=== PATIENT | male | born 1945 | race Caucasian/White ===

== ENCOUNTER → 2020-03-07 12:38 | Outpatient (BNVA) | payer MEDICARE, SELFPAY | PROVIDERS: Family Provider Family Medicine; Visit Provider Psychiatry & Neurology Psychiatry | DX: F31.73 Bipolar disorder, in partial remission, most recent episode manic (principal); F15.21 Other stimulant dependence, in remission | CPT/HCPCS: 99204 ==

== ENCOUNTER → 2020-06-15 07:56 | Outpatient (BNVA) | payer MEDICARE, SELFPAY | PROVIDERS: Family Provider Family Medicine; Visit Provider Nurse Practitioner | DX: F31.73 Bipolar disorder, in partial remission, most recent episode manic (principal) | CPT/HCPCS: 99213 ==

== ENCOUNTER 2020-11-06 00:25 | Emergency (ER) | payer MEDICARE, SELFPAY ==
[2020-11-06 00:32] VITALS: BP 172/109; PULSE 101; RESP 18; TEMP 36.6; O2SAT 96; BMI 26.6
--- NOTE | 2020-11-06 00:35 | ED_ITS ---
HPI - Extremity Injury (Lower) General: Chief Complaint: Wound/Laceration Stated Complaint: lac on left foot Time Seen by Provider: 11/06/20 00:35 Source: patient Mode of arrival: ambulatory Limitations: no limitations History of Present Illness: HPI Narrative: 75-year-old male patient comes in with injury to the left medial foot. Patient states he had left his pocket I opened on the floor and kicked it cutting himself to the left foot. Patient is able ambulate without difficulty. Patient appears well. Patient appears no acute distress. MD complaint: foot injury Review of Systems General: Reports: 10 or more systems reviewed and unremarkable except in HPI and below Skin/Breast: Reports: other (3 cm laceration to left foot) [facility] ED PFSH: Medical History (Updated 11/06/20 @ 00:55 by RENETTA Black) Bipolar disorder, in partial remission, most recent episode manic Other stimulant dependence, in remission Social History (Updated 03/07/20 @ 13:20 by Arti Long) Smoking and tobacco status: current some day smoker Quit status (tobacco): has tried quititng Second hand smoke exposure: Yes Smoking risk assessment/counseling performed?: Yes Current gender identity: Male Physical Exam Const: COMMON NORMALS: no acute distress and patient oriented x3 GENERAL APPEARANCE: cooperative HENMT: COMMON NORMALS: normocephalic and Normal external nose present HEAD & SCALP: normal to inspection and normocephalic NOSE: Normal external nose present MOUTH: Normal oral and palatal mucosa present Eye: GENERAL EYE: appearance normal, both eyes and all related structures Neck/C-Spine: COMMON NORMALS: full ROM Lymph: LYMPHATIC: no lymphadenopathy noted Chest: COMMONS NORMALS: normal inspection of the chest Resp: COMMON NORMALS: normal respiratory effort EFFORT & INSPECTION: Yes able to speak in complete sentences Cardio: COMMON NORMALS: regular rate and regular rhythm RATE: regular rate RHYTHM: regular rhythm GI: COMMON NORMALS: non-tender Back/Pelvis: COMMON NORMALS: thoracic and lumbar spine normal to inspection Extremity: COMMON NORMALS: normal to inspection Neuro: COMMON NORMALS: patient oriented x3 and moves all extremities Psych: COMMON NORMALS: mental status grossly normal and cooperative Skin: NARRATIVE SKIN EXAM: 3cm laceration to medial distal foot at the first joint Course Vital Signs: Vital signs: Vital Signs Temperature 97.8 F 11/06/20 00:32 Pulse Rate 101 H 11/06/20 00:32 Respiratory Rate 18 11/06/20 00:32 Blood Pressure 172/109 11/06/20 00:32 Pulse Oximetry 96 11/06/20 00:32 MDM - Extremity Injury (Lower) MDM Narrative: Medical decision making narrative: Patient comes into injury to the distal left foot. Patient would like the wound cleaned and dressed. Patient has a phobia against needles and does not want to have sutures or his tetanus shot. Exam notes normal range of motion of the great toe. Superficial laceration. Differential diagnosis includes foreign body, laceration, need for tetanus. Patient refused tetanus vaccine. Wound was explored and noted no foreign body. Wound was cleaned and approximated with Steri-Strips and a dry dressing applied. Patient tolerated well. Patient appears no acute distress. Nursing was concerned of patient's behavior and felt that the patient probably has some mild schizophrenia versus his bipolar disorder. Discharge Plan Discharge Patient Disposition: Home Clinical Impression: Laceration of foot, left Qualifiers: Encounter type: initial encounter Qualified Code(s): S91.312A - Laceration without foreign body, left foot, initial encounter Condition: Stable Prescriptions: No Action aripiprazole [Abilify] 5 mg tablet 5 mg PO DAILY Qty: 30 RF: 5 Discharge Orders: Discharge ED (Routine); Ordered 11/06/20 Ordered By: Da Key Referrals: Carlos Angeles MD [Primary Care Provider] - Discharge Diet: Usual diet Discharge Activity: Increase activity as tolerated Patient Instructions: Laceration (ED) Activity Restrictions/Additional Instructions: Keep wound clean and dry. Activity as tolerated. Follow-up with primary care for recheck of wound. Coding Level of Care Code ED Assistant Director Of Plant Operations for Alexandr Fwd Exam Comprehensive
--- NOTE | 2020-11-06 00:59 | PC.NURSE ---
Pt found outside, leaving. Per provider, pt was ask to stay in the room. Pt was outside walking to his truck. Return pt ED lobby to complete paperwork. Pt continues to refused Tdap. Pt signed paperwork.
== END 2020-11-06 00:50 | disposition home or self-care (01) ==
PROVIDERS: Emergency Provider Nurse Practitioner Family; PCP Family Medicine
DX: S91.312A Laceration without foreign body, left foot, initial encounter (principal); F17.210 Nicotine dependence, cigarettes, uncomplicated; W26.0XXA Contact with knife, initial encounter
CPT/HCPCS: 12345; 99281; 99282; A6446

== ENCOUNTER → 2021-05-01 10:15 | Outpatient (BNVA) | payer MEDICARE, SELFPAY | PROVIDERS: PCP Family Medicine; Visit Provider Nurse Practitioner | DX: F31.73 Bipolar disorder, in partial remission, most recent episode manic (principal) | CPT/HCPCS: 99214 ==

== ENCOUNTER → 2021-10-30 09:04 | Outpatient (BNVA) | payer MEDICARE, SELFPAY | PROVIDERS: PCP Family Medicine; Visit Provider Nurse Practitioner | DX: F31.73 Bipolar disorder, in partial remission, most recent episode manic (principal) | CPT/HCPCS: 99214 ==

== ENCOUNTER → 2023-02-25 15:12 | Outpatient (BNVA) | payer MEDICARE, SELFPAY | PROVIDERS: PCP Family Medicine; Visit Provider Nurse Practitioner Family | DX: R06.00 Dyspnea, unspecified (principal) | CPT/HCPCS: 71046 ==

== ENCOUNTER 2023-02-25 16:06 | Inpatient (IN) | payer MEDICARE, SELFPAY ==
[2023-02-25] VITALS (12 sets, daily range): BP systolic 151–176; BP diastolic 80–133; PULSE 72–96; RESP 16–27; TEMP 35.9–36.7; O2SAT 91–98; BMI 32.2
--- NOTE | 2023-02-25 16:17 | ED_ITS ---
HPI - SOB/Dyspnea General: Chief Complaint: Shortness of Breath/Dyspnea Stated Complaint: SOB Time Seen by Provider: 02/25/23 16:16 Source: patient Mode of arrival: EMS History of Present Illness: HPI Narrative: 77-year-old male reports for the last several weeks he has been short of breath. He has not had any chest pain but over the last week it has progressively worsened to the point where he is gotten weak dizzy and at times even disoriented. He uses an albuterol inhaler at home but it does not seem to be helping. He has audible expiratory wheezes he denies any chest pain at this time. He is a former heavy smoker he quit about 8 years ago but smoked for over 50 years prior. Arrives via EMS has moderate relief with albuterol ipratropium bromide nebs in route. No history of coronary artery disease no history of DVT. MD elicited complaint: shortness of breath and cough Pertinent past history: COPD Timing: constant Severity: moderate Exacerbating factors: exertion and coughing Relieving factors: oxygen, rest and bronchodilators Known history of: COPD Associated symptoms: Deny abdominal pain, chest congestion, chest pain, cough, diaphoresis, dizziness, extremity pain, fever(s), hemoptysis, lightheadedness, myalgias, nausea, orthopnea, palpitations, paresthesias, polydipsia, polyuria, rash, sense of impending doom, syncope or vomiting Treatment prior to arrival: oxygen and bronchodilator Related Data: Home oxygen amount: none Review of Systems Const: Denies: fever(s) or diaphoresis ENMT: Denies: throat pain, ear or mastoid pain, nasal discharge or nasal congestion Card: Denies: chest pain, palpitations, lightheadedness, syncope or orthopnea Resp: Denies: hemoptysis or chest congestion GI: Denies: abdominal pain, nausea or vomiting : Denies: flank pain, dysuria, urinary frequency or urinary urgency Musc: Denies: extremity pain Skin/Breast: Denies: rash or pruritus Neuro: Denies: dizziness Endo: Denies: polyuria or polydipsia [facility] ED PFSH: Medical History Bipolar disorder, in partial remission, most recent episode manic COPD (chronic obstructive pulmonary disease) with emphysema COPD exacerbation HTN (hypertension) Other stimulant dependence, in remission Social History Smoking and tobacco status: current some day smoker Quit status (tobacco): has tried quititng Second hand smoke exposure: Yes Smoking risk assessment/counseling performed?: Yes Current gender identity: Male Physical Exam Const: GENERAL APPEARANCE: cooperative and comfortable ORIENTATION /CONSCIOUSNESS: Yes awake, Yes oriented to person, Yes oriented to place and Yes oriented to time HENMT: COMMON NORMALS: normocephalic, atraumatic and hearing grossly normal bilaterally HEAD & SCALP: normocephalic and atraumatic Resp: AUSCULTATION: rhonchi and wheezes Cardio: COMMON NORMALS: regular rate, regular rhythm and No murmurs present (Cardio) RATE: regular rate RHYTHM: regular rhythm GI: COMMON NORMALS: Soft to palpation and No hepatosplenomegaly present AUSCULTATION: Yes normoactive bowel sounds PALPATION: Yes Soft to palpation, No Tenderness to palpation present (GI), No Guarding due to palpation present (GI) and Yes No hepatosplenomegaly present Extremity: COMMON NORMALS: normal to inspection, capillary refill normal, no clubbing, cyanosis or edema, no calf tenderness and no pedal edema Neuro: SENSORIUM/ORIENTATION: Yes oriented to person, Yes oriented to place and Yes oriented to time Skin: COMMON NORMALS: no rashes or lesions noted GENERAL SKIN EXAM: no rashes or lesions noted Course Vital Signs: Vital signs: Vital Signs Temperature 97.7 F 02/26/23 03:44 Pulse Rate 76 02/26/23 05:50 Respiratory Rate 18 02/26/23 03:44 Blood Pressure 162/82 02/26/23 03:44 Pulse Oximetry 94 02/26/23 03:44 Oxygen Delivery Me thod Aerosol Mask 02/26/23 03:44 Oxygen Flow Rate 3 02/26/23 03:44 MDM - SOB/Dyspnea Medical Decision Making Acute exacerbation of COPD with a new oxygen requirement. His sats do improved with supplemental oxygen at 3 to 4 L by nasal cannula. Labs and imaging are reviewed CO2 not elevated. Will admit patient for aggressive pulmonary toilet. . Chest x-ray shows possible bibasilar infiltrates. Started on oral antibiotics. No evidence of pneumothorax or mass. EKG does not show acute changes. Discussed with hospitalist orders written Medical Records I reviewed the patient's medical records. Lab Data I reviewed the patient's lab results. 02/26/23 04:10 02/26/23 04:10 Labs/Radiology: Radiology Impressions Chest X-Ray 02/25/23 16:17 IMPRESSION: 1. Cardiomegaly. 2. Bibasilar atelectasis versus minimal infiltrate. Laboratory Results WBC 10.4 10^3/uL (4.0-10.0) H 02/25/23 16:53 RBC 4.48 10^6/uL (4.1-5.3) 02/25/23 16:53 Hgb 13.3 g/dL (11.7-16.6) 02/25/23 16:53 Hct 41.4 % (42.0-52.0) L 02/25/23 16:53 MCV 92.4 fl (80-94) 02/25/23 16:53 MCH 29.7 pg (28.0-34.0) 02/25/23 16:53 MCHC 32.1 g/dL (30.0-36.0) 02/25/23 16:53 RDW 13.4 % (12.1-15.1) 02/25/23 16:53 Plt Count 271 10^3/cmm (130-400) 02/25/23 16:53 MPV 10.7 fL (7.4-10.4) H 02/25/23 16:53 Neut % (Auto) 66.6 % 02/25/23 16:53 Lymph % (Auto) 19.7 % 02/25/23 16:53 Sharkey % (Auto) 10.8 % 02/25/23 16:53 Eos % (Auto) 1.6 % 02/25/23 16:53 Baso % (Auto) 0.6 % 02/25/23 16:53 Neut # (Auto) 6.95 10^3/uL (1.8-7.7) 02/25/23 16:53 Lymph # (Auto) 2.1 10^3/uL (0.8-4.8) 02/25/23 16:53 Sharkey # (Auto) 1.1 10^3/uL (0.2-0.9) H 02/25/23 16:53 Eos # (Auto) 0.2 10^3/uL (0.0-0.8) 02/25/23 16:53 Baso # (Auto) 0.1 10^3/uL (0.0-0.1) 02/25/23 16:53 Nucleated RBC % (auto) 0 % 02/25/23 16:53 Nucleated RBCs # 0.0 /100WBC 02/25/23 16:53 Sodium 139 mmol/L (136-145) 02/25/23 16:53 Potassium 4.2 mmol/L (3.5-5.1) 02/25/23 16:53 Chloride 102 mmol/L (98-107) 02/25/23 16:53 Carbon Dioxide 26 mmol/L (22-29) 02/25/23 16:53 Anion Gap 15.2 (5-19) 02/25/23 16:53 BUN 22 mg/dL (8-23) 02/25/23 16:53 Creatinine 1.0 mg/dL (0.7-1.2) 02/25/23 16:53 GFR Calculation Not Reportable 02/25/23 16:53 Glucose 136 mg/dL (65-115) H 02/25/23 16:53 Estimat Average Glucose 128 02/25/23 16:53 Hemoglobin A1c 6.1 % (4.0-6.0) H 02/25/23 16:53 Calculated Osmolality 293 mOsm/kg (285-295) 02/25/23 16:53 Calcium 9.3 mg/dL (8.5-10.5) 02/25/23 16:53 Total Bilirubin 0.5 mg/dL (0.15-1.2) 02/25/23 16:53 AST 5 U/L (0-40) 02/25/23 16:53 ALT 15 U/L (0-41) 02/25/23 16:53 Alkaline Phosphatase 90 U/L (40-130) 02/25/23 16:53 NT-Pro-B Natriuret Pep 332 pg/mL (0-450) 02/25/23 16:53 Total Protein 7.2 g/dL (6.6-8.7) 02/25/23 16:53 Albumin 3.8 g/dL (3.5-5.2) 02/25/23 16:53 Globulin 3.4 g/dL (1.3-4.6) 02/25/23 16:53 Discharge Plan Discharge Patient Disposition: Admitted As Inpatient Admit Provider: Sekou Martinez Clinical Impression: Acute exacerbation of chronic obstructive airways disease, Community acquired pneumonia, HTN (hypertension) Condition: Stable Coding Level of Care Code ED Media Production Manager for Alexandr Apodaca
--- NOTE | 2023-02-25 16:17 | XRR_ITS ---
PROCEDURE INFORMATION: Exam: XR Chest Exam date and time: 02/25/2023 4:25 PM Age: 77 years old Clinical indication: Cough and dyspnea; Additional info: Dyspnea/cough TECHNIQUE: Imaging protocol: Radiologic exam of the chest. Views: 1 view. COMPARISON: CR XR chest 2V* [id number] 02/25/2023 3:18 PM FINDINGS: Lungs: Bibasilar atelectasis versus minimal infiltrate. Pleural spaces: Unremarkable. No pleural effusion. No pneumothorax. Heart/Mediastinum: Cardiomegaly. Bones/joints: Unremarkable. XR/XR chest 1V portable [id number] IMPRESSION: 1. Cardiomegaly. 2. Bibasilar atelectasis versus minimal infiltrate.
[2023-02-25] MEDS: ipratropium-albuterol 3 mL Neb INHALATION ×2 (16:47→20:08)
[2023-02-25 17:01] LABS: Basophils # 0.1 10^3/uL (0.0-0.1); Basophils % 0.6 %; Eosinophils # 0.2 10^3/uL (0.0-0.8); Eosinophils % 1.6 %; Hematocrit 41.4 % (42.0-52.0); Hemoglobin 13.3 g/dL (11.7-16.6); Lymphocytes # 2.1 10^3/uL (0.8-4.8); Lymphocytes % 19.7 %; Mean Corpuscular HGB Conc 32.1 g/dL (30.0-36.0); Mean Corpuscular Hemoglobin 29.7 pg (28.0-34.0); Mean Corpuscular Volume 92.4 fl (80-94); Mean Platelet Volume 10.7 fL (7.4-10.4); Monocytes # 1.1 10^3/uL (0.2-0.9); Monocytes % 10.8 %; Neutrophils # 6.95 10^3/uL (1.8-7.7); Neutrophils % 66.6 %; Nucleated Red Blood Cells % 0 %; Platelet Count 271 10^3/cmm (130-400); Red Blood Count 4.48 10^6/uL (4.1-5.3); Red Cell Distribution Width 13.4 % (12.1-15.1); White Blood Count 10.4 10^3/uL (4.0-10.0)
[2023-02-25 17:22] LABS: Alanine Aminotransferase 15 U/L (0-41); Albumin Level 3.8 g/dL (3.5-5.2); Alkaline Phosphatase 90 U/L (40-130); Anion Gap 15.2 (5-19); Blood Urea Nitrogen 22 mg/dL (8-23); Calcium 9.3 mg/dL (8.5-10.5); Carbon Dioxide 26 mmol/L (22-29); Chloride 102 mmol/L (98-107); Globulin 3.4 g/dL (1.3-4.6); Glucose 136 mg/dL (65-115); Osmolality Calculated 293 mOsm/kg (285-295); Potassium 4.2 mmol/L (3.5-5.1); Sodium 139 mmol/L (136-145); Total Bilirubin 0.5 mg/dL (0.15-1.2); Total Protein 7.2 g/dL (6.6-8.7)
[2023-02-25 17:31] LABS: Aspartate Amino Transferase 5 U/L (0-40)
--- NOTE | 2023-02-25 17:55 | PM.HP ---
Providers/Chief Complaint Admitting Physician: Sekou Martinez MD, hospitalist Primary Care Provider: Carlos Angeles MD Chief Complaint: SOB History of Present Illness Rajan Hurley is a 77 year old male with history of bipolar disorder, hypertension, and COPD who presents to the hospital with complaints of wheezing and cough. Symptoms of been going on for at least the last several days. He denies any fever. He reports the cough is not productive. He reports no chest discomfort, or swelling. He denies any sick contacts. He reports he has an inhaler at home that helps but has not been helping too much with this. He reports he is not on oxygen at home. In the emergency department he received some breathing treatments, and a dose of dexamethasone. He reports he may feel a little bit better. Review of Systems General: Reports: 10 or more systems reviewed and unremarkable except in HPI and below Const: Denies: fever(s) or chills Card: Denies: chest pain Resp: Reports: dyspnea, non-productive cough and wheezing GI: Denies: hematochezia or melena Medications/Allergies Home Medications Medication Instructions Recorded Confirmed Last Taken Type aspirin 81 mg chewable tablet 81 mg PO DAILY 05/01/21 02/25/23 02/25/23 History lisinopril 20 mg tablet 20 mg PO DAILY 10/30/21 02/25/23 02/25/23 History rosuvastatin 40 mg tablet (Crestor) 40 mg PO DAILY 10/30/21 02/25/23 02/25/23 History albuterol sulfate 90 mcg/actuation 2 puff inhalation Q6H PRN 11/19/22 02/25/23 Unknown Rx aerosol inhaler shortness of breath or wheezing #8.5 grams budesonide-formoterol HFA 160 2 puff inhalation BID breathing 11/19/22 02/25/23 02/25/23 Rx mcg-4.5 mcg/actuation aerosol #10.2 grams inhaler (Symbicort) aripiprazole 5 mg tablet (Abilify) 5 mg PO DAILY #30 tabs 12/20/22 02/25/23 02/25/23 Rx calcium-magnesium 300 mg-300 mg 1 tab PO BID 02/25/23 02/25/23 02/25/23 History tablet melatonin 5 mg tablet 5 mg PO BEDTIME PRN sleep 02/25/23 02/25/23 Unknown History Allergies Allergy/AdvReac Type Severity Reaction Status Date / Time No Known Allergies Allergy Verified 02/25/23 16:42 PFSH Acute PFSH: Medical History Bipolar disorder, in partial remission, most recent episode manic COPD (chronic obstructive pulmonary disease) with emphysema COPD exacerbation HTN (hypertension) Other stimulant dependence, in remission Social History Smoking and tobacco status: current some day smoker Quit status (tobacco): has tried quititng Second hand smoke exposure: Yes Smoking risk assessment/counseling performed?: Yes Current gender identity: Male Other PFSH information: Supplemental PFSH Information: Reports family history of alcoholism Vitals/I&O/Wt Last Vital Signs Temp 96.7 F L 02/25/23 16:13 Pulse 96 02/25/23 17:46 Resp 24 H 02/25/23 17:46 BP 169/111 02/25/23 17:46 Pulse Ox 92 02/25/23 17:46 O2 Del Method Nasal Cannula 02/25/23 17:46 O2 Flow Rate 3 02/25/23 17:46 Weight last 48 hrs Weight 93.44 kg Physical Exam Narrative: General exam demonstrates audible wheezing from the door, and tachypnea in the 20s HEENT: Atraumatic and normocephalic. Oropharynx clear. Neck is supple no lymphadenopathy thyromegaly Cardiovascular regular rate and rhythm, no murmur Lungs bilateral expiratory wheezes. No crackles Abdomen is soft nontender positive bowel sounds. No obvious organomegaly exam is deferred Extremities trace edema bilaterally Skin no rash Neuro no focal deficits Data 02/25/23 16:53 02/25/23 16:53 Other Labs: Chest x-ray demonstrates bibasilar atelectasis. I reviewed this in detail I have ordered a BNP A&P Assessment and plan (1) COPD exacerbation: Presents with acute COPD exacerbation. He has some evidence of acute respiratory failure manifested by oxygen requirement, 3 to 5 L and tachypnea Wean oxygen as tolerated Dexamethasone was given in the emergency department. Continue this every 12 hours, 6 mg IV DuoNeb every 4 hours Budesonide twice daily Avoid tobacco Check COVID PCR Doxycycline 100 mg twice daily secondary to COPD exacerbation/bronchitis CBC and CMP in the morning. (2) HTN (hypertension): Continue home medication Hydralazine as needed Plan Bipolar disorder. Continue Zyprexa other medical problems as outlined in past medical history Full code Lovenox for DVT prophylaxis Attestations Medical Necessity Statement*: Will require greater than 2 midnight stay for evaluation and treatment of severe COPD exacerbation with acute hypoxic respiratory failure. Diagnoses COPD exacerbation J44.1 HTN (hypertension) I10 Time Spent (min) 39
[2023-02-25] MEDS: doxycycline 100 mg Tablet PO (18:19)
--- NOTE | 2023-02-25 18:35 | ECG_ITS ---
[facility] Test Date: 2023-02-25 Pat Name: Rajan Hurley Department: Room: 105 Gender: Male Shot Peen Operator: : 1945 Requested By: Marcus Lambert Order Number: [id number] Ian MD: Denis Thao M.D. Measurements Intervals [place] Rate: 93 P: 7 IA: 156 QRS: -37 QRSD: 133 T: 83 QT: 345 QTc: 429 Interpretive Statements SINUS RHYTHM LEFT AXIS DEVIATION [QRS AXIS < -30] INTRAVENTRICULAR CONDUCTION DELAY [130+ ms QRS DURATION] LEFT VENTRICULAR HYPERTROPHY AND ST-T CHANGE [VOLTAGE CRITERIA PLUS ST/T ABNORMALITY] Compared to ECG 11/19/2016 11:06:36 Intraventricular conduction delay now present Left ventricular hypertrophy now present ST (T wave) deviation now present Sinus tachycardia no longer present T-wave abnormality no longer present Possible ischemia no longer present Electronically Signed On 02-26-2023 11:55:31 CDT by Denis Thao M.D. [email or web address]
[2023-02-25 18:54] LABS: NT Pro B Type Natriuretic Pept 332 pg/mL (0-450)
[2023-02-25 19:56] LABS: Adenovirus Not Detected (NOT DETECT); Chlamydia Pneumoniae Not Detected (NOT DETECT); Coronavirus 229E,HKU1,NL63,OC4 Not Detected (NOT DETECT); Human Metapneumovirus Not Detected (NOT DETECT); Human Rhinovirus/Enterovirus Not Detected (NOT DETECT); Influenza A Not Detected (NOT DETECT); Influenza A H1 Not Detected (NOT DETECT); Influenza A H1-2009 Not Detected (NOT DETECT); Influenza A H3 Not Detected (NOT DETECT); Influenza B Not Detected (NOT DETECT); Mycoplasma Pneumoniae Not Detected (NOT DETECT); Parainfluenza Virus Type 1 Not Detected (NOT DETECT); Parainfluenza Virus Type 2 Not Detected (NOT DETECT); Parainfluenza Virus Type 3 Not Detected (NOT DETECT); Parainfluenza Virus Type 4 Not Detected (NOT DETECT); Respiratory Syncytial Virus A Not Detected (NOT DETECT); Respiratory Syncytial Virus B Not Detected (NOT DETECT); SARS-COV-2 Not Detected (NOT DETECT)
[2023-02-25 20:05] LABS: Estmated Average Glucose 128; Hemoglobin A1C 6.1 % (4.0-6.0)
[2023-02-25] MEDS: budesonide 0.5 mg/2 mL Neb INHALATION (20:08)
[2023-02-25] MEDS: enoxaparin 40 mg/0.4 mL Syringe SUBCUT (20:46)
[2023-02-26] VITALS (64 sets, daily range): BP systolic 132–175; BP diastolic 79–94; PULSE 76–109; RESP 0–31; TEMP 36.5–37.1; O2SAT 90–98
[2023-02-26 02:06] LABS: Add Urine Microscopic? NO; Charge for UA Resulting for Rev
[2023-02-26 02:15] LABS: Bilirubin Urine Neg (Negative); Blood Urine Neg (Negative); Glucose Urine UA 1+ (Normal); Ketones Urine Negative (Negative); Leukocyte Esterase Urine Negative (Negative); Nitrate Urine Negative (Negative); Protein Urine Neg (Negative); Specific Gravity, Urine 1.025 (1.005-1.030); Urine Appearance Clear (CLEAR); Urine Color Yellow (Yellow); Urobilinogen Urine Neg (Negative); pH Urine 5 (5-7)
[2023-02-26] MEDS: ipratropium-albuterol 3 mL Neb INHALATION ×5 (03:29→20:49)
[2023-02-26 04:44] LABS: Basophils % 0.1 %; Hematocrit 42.4 % (42.0-52.0); Hemoglobin 13.1 g/dL (11.7-16.6); Lymphocytes # 1.1 10^3/uL (0.8-4.8); Lymphocytes % 10.3 %; Mean Corpuscular HGB Conc 30.9 g/dL (30.0-36.0); Mean Corpuscular Hemoglobin 29.1 pg (28.0-34.0); Mean Corpuscular Volume 94.2 fl (80-94); Mean Platelet Volume 11.2 fL (7.4-10.4); Monocytes # 0.3 10^3/uL (0.2-0.9); Monocytes % 2.5 %; Neutrophils # 8.91 10^3/uL (1.8-7.7); Neutrophils % 86.4 %; Nucleated Red Blood Cells % 0 %; Platelet Count 293 10^3/cmm (130-400); Red Cell Distribution Width 13.5 % (12.1-15.1); White Blood Count 10.3 10^3/uL (4.0-10.0)
[2023-02-26 05:09] LABS: Alanine Aminotransferase 15 U/L (0-41); Albumin Level 3.6 g/dL (3.5-5.2); Alkaline Phosphatase 84 U/L (40-130); Anion Gap 16.6 (5-19); Aspartate Amino Transferase 13 U/L (0-40); Blood Urea Nitrogen 25 mg/dL (8-23); Calcium 9.2 mg/dL (8.5-10.5); Carbon Dioxide 25 mmol/L (22-29); Chloride 102 mmol/L (98-107); Globulin 3.3 g/dL (1.3-4.6); Glucose 269 mg/dL (65-115); Osmolality Calculated 302 mOsm/kg (285-295); Potassium 4.6 mmol/L (3.5-5.1); Sodium 139 mmol/L (136-145); Total Bilirubin 0.3 mg/dL (0.15-1.2); Total Protein 6.9 g/dL (6.6-8.7)
[2023-02-26] MEDS: dexamethasone 10 mg/mL INJ 6 MG IVP (05:46)
[2023-02-26] MEDS: aspirin 81 mg Chew Tablet PO (08:40)
[2023-02-26] MEDS: ARIPiprazole 10 mg Tablet 5 MG PO (08:40)
[2023-02-26] MEDS: lisinopril 20 mg Tablet PO (08:40)
[2023-02-26] MEDS: atorvastatin 40 mg Tablet 80 MG PO (08:41)
[2023-02-26] MEDS: doxycycline 100 mg Tablet PO ×2 (08:41→17:46)
[2023-02-26] MEDS: budesonide 0.5 mg/2 mL Neb INHALATION ×2 (08:43→20:48)
--- NOTE | 2023-02-26 09:58 | PM.PN ---
Subjective Subjective: Rajan reports he is feeling a little bit better. Less short of breath. Still wheezing. Coughing up some mucus but no blood. Medications: Reviewed: Yes Vitals/I&O/Wt Last Vital Signs Temp 97.7 F 02/26/23 03:44 Pulse 92 02/26/23 08:57 Resp 18 02/26/23 08:46 BP 175/94 02/26/23 08:00 Pulse Ox 95 02/26/23 08:46 O2 Del Method Nasal Cannula 02/26/23 08:46 O2 Flow Rate 3 02/26/23 08:46 02/25/23 02/26/23 02/26/23 22:59 06:59 14:59 Intake Total 0 / 0 120 / 120 200 / 200 Output Total 0 / 0 Balance 0 / 0 120 / 120 200 / 200 Weight last 48 hrs Weight 93.44 kg Physical Exam Narrative: General exam no distress Neck is supple no lymphadenopathy thyromegaly Cardiovascular regular rate and rhythm, no murmur Lungs bilateral expiratory wheezes. Improved aeration from yesterday Abdomen is soft nontender positive bowel sounds. No obvious organomegaly Extremities trace edema bilaterally Data 02/26/23 04:10 02/26/23 04:10 Other Labs: BMP reviewed, normal A&P Assessment and plan (1) COPD exacerbation: Presents with acute COPD exacerbation. He has some evidence of acute respiratory failure manifested by oxygen requirement, 3 to 5 L and tachypnea. This is resolving. He is now down to 3 L with improved aeration and less tachypnea Discontinue IV dexamethasone Prednisone 40 mg daily DuoNeb every 4 hours Budesonide twice daily Avoid tobacco COVID PCR checked and negative Continue doxycycline 100 mg twice daily secondary to COPD exacerbation/bronchitis Possible discharge tomorrow. Continue to wean oxygen (2) HTN (hypertension): Continue home medication Add amlodipine Hydralazine as needed Plan Bipolar disorder. Continue Zyprexa other medical problems as outlined in past medical history Full code Lovenox for DVT prophylaxis Attestations Medical Necessity Statement*: Needs continued hospitalization for COPD exacerbation requiring frequent nebs in this patient still requiring oxygen. Diagnoses COPD exacerbation J44.1 HTN (hypertension) I10 Time Spent (min) 24
[2023-02-26] MEDS: amlodipine 5 mg Tablet PO (10:40)
--- NOTE | 2023-02-26 10:51 | PC.CHAP ---
Pastoral Care Encounter/Spiritual Assessment Type of Contact [] Declined information technology analyst visit [] Patient/Family/Request visit [] Outpatient visit [] Follow-up visit [] Physician referral [] Code/Alert [x] Routine visit [] Staff referral [] Actively dying [] Patient sleeping [] Family support [] [] Out of room [] Palliative care [] [] Receiving care in room [] Pre-surgical visit [] Trauma [] Long length of stay [] ICU visit [] Other: Relational/Emotional Strength [x] Patient feels connected with others/family/visitors/staff [] Distress [] Loneliness/isolation [] Abandonment Spirituality of Patient [x] Person of Denise [x] Attends Episcopal of their Denise [x] Believes in Prayer [x] Reads Bible or Confucianism materials [] There are Spiritual issues to be addressed Area Operations Director Interventions [x] Prayer [x] Active listening [] Non-anxious presence [x] Spiritual/emotional support [] Crisis/trauma care [] Spiritual counseling [] Bereavement support [] Provided bereavement packet [] Provided Bible/devotional materials [] Provided toy/stuffed animal, coloring book to patient or family member [] Provided Communion [] Anointing/[place] [] Salvation [x] Completed spiritual assessment [] Other: Impact on Illness or Injury [] Angry [] Fearful [] Anxious [] Often cries [] Exhaustion [] Unable to work [] Unable to attend moravian [] Unable to walk/stand [] Unable to read [] Unable to drive [] Unable to eat/drink [] Unable to sleep [] Unable to be with family [] Patient intubated [] Other: Summary Time spent with patient 5 min
[2023-02-26] MEDS: enoxaparin 40 mg/0.4 mL Syringe SUBCUT (20:05)
[2023-02-27] VITALS (7 sets, daily range): BP systolic 126–148; BP diastolic 79–109; PULSE 86–97; RESP 17–20; O2SAT 87–100
[2023-02-27] MEDS: acetaminophen 325 mg Tablet 650 MG PO (00:54)
[2023-02-27] MEDS: ipratropium-albuterol 3 mL Neb INHALATION ×2 (04:26→07:15)
--- NOTE | 2023-02-27 06:50 | PM.DCS ---
Discharge Providers Date of Admission: 02/25/23 17:36 Date of Discharge: February 27, 2023 Attending Provider at Admission: Sekou Martinez MD Attending Provider at Discharge: Sekou Martinez MD Primary Care Provider: Carlos Angeles MD Diagnoses at Discharge Discharge Diagnosis (1) COPD exacerbation: Status: Acute (2) HTN (hypertension): Status: Acute Reason for Visit Reason for Visit: SOB Hospital Course Hospital Course Rajan presented to the hospital with shortness of breath and wheezing. Bibasilar atelectasis was noted. He was diagnosed with COPD exacerbation and initiated on IV steroids, frequent breathing treatments, and oral doxycycline. COVID was negative. BNP normal. Initially he had some acute hypoxic respiratory failure with tachypnea, and requiring 5 L of oxygen. With the above treatment he gradually improved, and eventually went to room air. He was able to be discharged February 27. He will follow-up with his primary care provider in 3 to 5 days. He was given an opportunity ask questions, and agreed with the plan. Physical Exam Narrative: General exam no distress Neck is supple Cardiovascular regular rate and rhythm Pulmonary: Much improved aeration, few persistent bilateral basal wheezes Extremities no cyanosis clubbing or edema Discharge Data Studies Completed and Pending Completed Studies During Hospitalization Category Date Time Status XR chest 1V portable [id number] Stat Exams 02/25/23 16:17 Completed Pending at discharge Category Date Time Status Sputum Culture and Gram Stain Stat Lab 02/26/23 11:00 Received Radiology Impressions Chest X-Ray 02/25/23 16:17 IMPRESSION: 1. Cardiomegaly. 2. Bibasilar atelectasis versus minimal infiltrate. Laboratory Results WBC 10.3 10^3/uL (4.0-10.0) H 02/26/23 04:10 RBC 4.50 10^6/uL (4.1-5.3) 02/26/23 04:10 Hgb 13.1 g/dL (11.7-16.6) 02/26/23 04:10 Hct 42.4 % (42.0-52.0) 02/26/23 04:10 MCV 94.2 fl (80-94) H 02/26/23 04:10 MCH 29.1 pg (28.0-34.0) 02/26/23 04:10 MCHC 30.9 g/dL (30.0-36.0) 02/26/23 04:10 RDW 13.5 % (12.1-15.1) 02/26/23 04:10 Plt Count 293 10^3/cmm (130-400) 02/26/23 04:10 MPV 11.2 fL (7.4-10.4) H 02/26/23 04:10 Neut % (Auto) 86.4 % 02/26/23 04:10 Lymph % (Auto) 10.3 % 02/26/23 04:10 [place] % (Auto) 2.5 % 02/26/23 04:10 Eos % (Auto) 0.0 % 02/26/23 04:10 Baso % (Auto) 0.1 % 02/26/23 04:10 Neut # (Auto) 8.91 10^3/uL (1.8-7.7) H 02/26/23 04:10 Lymph # (Auto) 1.1 10^3/uL (0.8-4.8) 02/26/23 04:10 [place] # (Auto) 0.3 10^3/uL (0.2-0.9) 02/26/23 04:10 Eos # (Auto) 0.0 10^3/uL (0.0-0.8) 02/26/23 04:10 Baso # (Auto) 0.0 10^3/uL (0.0-0.1) 02/26/23 04:10 Nucleated RBC % (auto) 0 % 02/26/23 04:10 Nucleated RBCs # 0.0 /100WBC 02/26/23 04:10 Sodium 139 mmol/L (136-145) 02/26/23 04:10 Potassium 4.6 mmol/L (3.5-5.1) 02/26/23 04:10 Chloride 102 mmol/L (98-107) 02/26/23 04:10 Carbon Dioxide 25 mmol/L (22-29) 02/26/23 04:10 Anion Gap 16.6 (5-19) 02/26/23 04:10 BUN 25 mg/dL (8-23) H 02/26/23 04:10 Creatinine 1.2 mg/dL (0.7-1.2) 02/26/23 04:10 GFR Calculation Not Reportable 02/26/23 04:10 Glucose 269 mg/dL (65-115) H 02/26/23 04:10 Estimat Average Glucose 128 02/25/23 16:53 Hemoglobin A1c 6.1 % (4.0-6.0) H 02/25/23 16:53 Calculated Osmolality 302 mOsm/kg (285-295) H 02/26/23 04:10 Calcium 9.2 mg/dL (8.5-10.5) 02/26/23 04:10 Phosphorus 3.0 mg/dL (2.5-4.5) 02/26/23 04:10 Total Bilirubin 0.3 mg/dL (0.15-1.2) 02/26/23 04:10 AST 13 U/L (0-40) 02/26/23 04:10 ALT 15 U/L (0-41) 02/26/23 04:10 Alkaline Phosphatase 84 U/L (40-130) 02/26/23 04:10 NT-Pro-B Natriuret Pep 332 pg/mL (0-450) 02/25/23 16:53 Total Protein 6.9 g/dL (6.6-8.7) 02/26/23 04:10 Albumin 3.6 g/dL (3.5-5.2) 02/26/23 04:10 Globulin 3.3 g/dL (1.3-4.6) 02/26/23 04:10 Urine Color Yellow (Yellow) 02/26/23 01:30 Urine Appearance Clear (CLEAR) 02/26/23 01:30 Urine pH 5 (5-7) 02/26/23 01:30 Ur Specific [place] 1.025 (1.005-1.030) 02/26/23 01:30 Urine Protein Neg (Negative) 02/26/23 01:30 Urine Glucose (UA) 1+ (Normal) H 02/26/23 01:30 Urine Ketones Negative (Negative) 02/26/23 01:30 Urine Blood Neg (Negative) 02/26/23 01:30 Urine Nitrate Negative (Negative) 02/26/23 01:30 Urine Bilirubin Neg (Negative) 02/26/23 01:30 Urine Urobilinogen Neg mg/dL (Negative) 02/26/23 01:30 Ur Leukocyte Esterase Negative (Negative) 02/26/23 01:30 Coronavirus 229E (PCR) Not detected (NOT DETECT) 02/25/23 17:53 SARS-CoV-2 (PCR) Not detected (NOT DETECT) 02/25/23 17:53 Vitals Last Vital Signs Temp 98.7 F 02/26/23 19:45 Pulse 91 02/27/23 05:05 Resp 20 H 02/27/23 04:26 BP 148/87 02/27/23 03:40 Pulse Ox 100 02/27/23 04:26 O2 Del Method Room Air 02/27/23 04:26 O2 Flow Rate 2 02/26/23 16:05 Discharge Plan Discharge Patient Disposition: Home Condition: Stable Prescriptions: New prednisone 20 mg Tablet 40 mg PO DAILY Qty: 6 0RF amlodipine 5 mg Tablet 5 mg PO DAILY Qty: 30 0RF doxycycline monohydrate 100 mg Tablet 100 mg PO BID Qty: 10 0RF Continued aspirin 81 mg tablet,chewable 81 mg PO DAILY lisinopril 20 mg tablet 20 mg PO DAILY rosuvastatin [Crestor] 40 mg tablet 40 mg PO DAILY aripiprazole [Abilify] 5 mg tablet 5 mg PO DAILY Qty: 30 5RF albuterol sulfate 90 mcg/actuation HFA aerosol inhaler 2 puff inhalation Q6H PRN (Reason: shortness of breath or wheezing) Qty: 8.5 0RF budesonide-formoterol [Symbicort] 160-4.5 mcg/actuation HFA aerosol inhaler 2 puff inhalation BID Qty: 10.2 5RF calcium-magnesium 300-300 mg Tablet 1 tab PO BID Rx Instructions: administer with a meal melatonin 5 mg Tablet 5 mg PO BEDTIME PRN (Reason: sleep) Discharge Orders: Discharge Order (Routine); Ordered 02/27/23 Ordered By: Sekou Martinez Referrals: Carlos Angeles MD [Primary Care Provider] - 03/04/23 7:40 am (Please follow-up with Dr. Angeles on March 04 at 7:40A.M. If you have any questions or need to reschedule. Please call ) Discharge Diet: Cardiac Discharge Activity: Increase activity as tolerated Patient Instructions: COPD, Doxycycline (By mouth), Prednisone (By mouth), Amlodipine (By mouth), Community Acquired Pneumonia (DC), Hypertension (DC), COPD Stoplight, Opioid Safety, Pneumonia Stoplight Activity Restrictions/Additional Instructions: Take all meds as prescribed. Follow up with primary care provider in 3-5 days. Patient's Health Concerns: Shortness of breath Assessment: COPD exacerbation Plan of Treatment: Finish course of antibiotics, steroids andcontinue inhalers. Discharge Attestations Time Spent in Discharge Care*: greater than 30 min Quality Metrics Clinical Quality Measures [ No reported AMI, CVA or VTE this stay] Coding Level of Care Code 00620 Total time (in minutes) for Discharge: 33 Diagnoses COPD exacerbation J44.1 HTN (hypertension) I10
[2023-02-27] MEDS: budesonide 0.5 mg/2 mL Neb INHALATION (07:16)
[2023-02-27] MEDS: aspirin 81 mg Chew Tablet PO (08:07)
[2023-02-27] MEDS: lisinopril 20 mg Tablet PO (08:07)
[2023-02-27] MEDS: amlodipine 5 mg Tablet PO (08:07)
[2023-02-27] MEDS: ARIPiprazole 10 mg Tablet 5 MG PO (08:07)
[2023-02-27] MEDS: predniSONE 20 mg Tablet 40 MG PO (08:07)
[2023-02-27] MEDS: doxycycline 100 mg Tablet PO (08:07)
[2023-02-27] MEDS: atorvastatin 40 mg Tablet 80 MG PO (08:07)
--- NOTE | 2023-02-27 09:17 | PC.NURSE ---
Patients IV removed at 08:40. Patient given verbal and written education on discharge instruction, patient verbalized understanding. Patient taken to parking lot via wheelchair, and left facility with primary caregiver at 09:00.
== END 2023-02-27 09:00 | disposition home or self-care (01) | DRG 190 ==
LOC: ER 16:17 → CSU 18:20
PROVIDERS: Admitting Provider Internal Medicine; Emergency Provider Family Medicine; PCP Family Medicine; Visit Provider Internal Medicine
DX: J43.9 Emphysema, unspecified (principal); J96.01 Acute respiratory failure with hypoxia; I10 Essential (primary) hypertension; Z79.82 Long term (current) use of aspirin; Z79.51 Long term (current) use of inhaled steroids; F31.73 Bipolar disorder, in partial remission, most recent episode manic; F17.200 Nicotine dependence, unspecified, uncomplicated
CPT/HCPCS: 36415; 71045; 71046; 80053; 81003; 83036; 83880; 84100; 85025; 87070; 87106; 87205; 87635; 93005; 94640; 94760; 96372; 96376; 99285; J1100; J1650; J7512; J7626

== ENCOUNTER 2023-03-28 09:28 | Outpatient (CLI) | payer MEDICARE, SELFPAY ==
--- NOTE | 2023-03-28 09:57 | FL_ITS ---
WS: [id number] Modified barium swallow, 03/28/2023 Clinical Data: Other dysphagia Comparison: None. Fluoroscopy time: 1min [id number] # of spot films: Findings: The patient exhibited good oral and pharyngeal function. The solid and semisolid material moves peterson lly from the oropharynx to the hypopharynx into the esophagus. The patient did have an episode of asp iration with 10 mL of liquid. The barium tablet moved normally from the oropharynx into the hypophary nx and finally into the esophagus and stomach. FL/FL barium swallow modifd [id number] Impression: Aspiration with 10 mL of liquids.
--- NOTE | 2023-03-28 09:57 | CT_ITS ---
WS: [id number] CTA OF THE CHEST WITH PULMONARY EMBOLISM PROTOCOL TECHNIQUE: High-resolution contrast enhanced CTA of the chest with coronal and sagittal reformatted i mages with pulmonary embolism protocol. MIP images are also reviewed. CLINICAL INFORMATION: HEMOPTYSIS COMPARISON: CTa 2017 DLP: 428.[address] scans at [facility] use at least one of these dose optimization techniques: automated e xposure control; mA and/or kV adjustment per patient size (includes targeted exams where dose is matc hed to clinical indication); or iterative reconstruction. FINDINGS: Proximal main pulmonary arteries are normal. No evidence of pulmonary embolus. Normal segmental and s ubsegmental pulmonary arteries.Chronic emphysematous changes. Slight bibasilar atelectasis. Mild learning coach timmy appearing interstitial thickening within both lungs. 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 Enlarged LEFT ventricle. Aortic calcif ication. Coronary calcification. No mediastinal lymphadenopathy. A few slightly prominent hilar lymph nodes likely reactive. No axillary lymphadenopathy. Large esophageal hiatal hernia with partial intr athoracic stomach. Adrenal glands are normal. Small increased attenuation LEFT renal lesions most likely hemorrhagic or proteinaceous cysts but indeterminant and incompletely visualized. Largest measures 1.9 CM. This can be further evaluated with ultrasound. LEFT kidney increased attenuation lesion measuring 1.9 CM. This can be further evaluated with ultrasound. Fatty atrophy of the pancreas. Moderate thoracic kyphosis. Hypertrophic changes thoracic spine. CT/CT angio chest PE protcl [id number] IMPRESSION: 1. Proximal main pulmonary arteries are normal. No evidence of pulmonary embol us. 2. Chronic emphysematous changes with slight bibasilar atelectasis. No focal p neumonia or pleural fluid. 3. Enlarged LEFT ventricle. 4. Large esophageal hiatal hernia with partial intrathoracic stomach. 5. 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 6. Indeterminate LEFT renal lesions. Recommend renal ultrasound.
[2023-03-28] MEDS: iohexol 350 mg/mL 500 mL Btl (per mL) IV (10:41)
--- NOTE | 2023-03-28 12:15 | USCV_ITS ---
Mei Rajan Age: 77 Gender: M : 1945 Exam Date: 03/28/2023 10:40 Ordering Phys: Carlos Angeles MD Technologist: Exam Location: [facility] Indication: Hx of DC. ?AO stenosis BP: 160 / 80 HR: 86 Rhythm: Sinus Technical Quality: Adequate MEASUREMENTS (Male / Female) Normal Values 2D ECHO LV Diastolic Diameter PLAX 4.7 cm 4.2 - 5.9 / 3.9 - 5.3 cm LV Systolic Diameter PLAX 2.7 cm IVS Diastolic Thickness 1.3 cm 0.6 - 1.0 / 0.6 - 0.9 cm IVS Systolic Thickness 1.6 cm LVPW Diastolic Thickness 1.3 cm 0.6 - 1.0 / 0.6 - 0.9 cm LVPW Systolic Thickness 1.5 cm LVOT Diameter 2.1 cm LV Ejection Fraction 2D Teich 74.0 % LA Diameter 3.8 cm M-MODE Aortic Annulus Diameter 4.4 cm LA Ao Ratio MM 0.8 MV E Point Septal Separation 1.5 cm DOPPLER AV Peak Velocity 206.3 cm/s LVOT Peak Velocity 78.0 cm/s AV Area Cont Eq vti 1.5 cm squared AV Area Cont Eq pk 1.3 cm squared MV Area PHT 4.6 cm squared Mitral E to A Ratio 0.6 MV E' Velocity 26.0 cm/s Mitral E to MV E' Ratio 6.3 Mitral E to LV E' Lateral Ratio 5.3 Mitral E to LV E' Septal Ratio 7.9 TR Peak Velocity 192.0 cm/s TR Peak Gradient 14.7 mmHg TV Peak E Velocity 103.0 cm/s Right Atrial Pressure 3.0 mmHg Pulmonary Artery Systolic Pressu 17.7 mmHg RV Acceleration Time 0.1 s FINDINGS Left Ventricle Technically limited quality echocardiogram because of poor ultrasonic windows. Left ventricle is normal in size. LV systolic function is atleast mildly reduced. Regional wall motion abnormalities cannot accurately be assessed because of poor ultrasonic windows. Grade 1 diastolic dysfunction. Right Ventricle Normal in size and function Right Atrium Normal in size Left Atrium Normal in size Mitral Valve Structurally normal mitral valve. Trace mitral regurgitation. Aortic Valve Aortic valve is thickened. Mild aortic stenosis with aortic valve area of 1.51 cm squared and mean gradient across aortic valve of 7.4 mmHg. Tricuspid Valve Mild tricuspid regurgitation. Pulmonary artery systolic pressure is normal. Pulmonic Valve Not well-visualized Pericardium Normal Aorta Normal in size IVC Appears to be normal CONCLUSIONS Technically limited quality echocardiogram because of poor ultrasonic windows. Grossly, LV systolic function is at least mildly reduced. Regional wall motion abnormalities cannot accurately be assessed because of poor ultrasonic windows. Grade 1 diastolic dysfunction Trace mitral regurgitation Mild aortic stenosis. Mild tricuspid regurgitation. No comparison studies are available. Recommend limited echocardiogram with contrast to better assess LV systolic function and regional wall motion abnormalities. Denis Thao MD (Electronically Signed) Final Date: 30 March 2023 16:38 S
== END 2023-03-28 09:29 | disposition home or self-care (01) ==
PROVIDERS: PCP Family Medicine; Visit Provider Family Medicine
DX: I35.0 Nonrheumatic aortic (valve) stenosis (principal); I07.1 Rheumatic tricuspid insufficiency; R93.1 Abnormal findings on diagnostic imaging of heart and coronary circulation; R04.2 Hemoptysis; R13.19 Other dysphagia; R93.3 Abnormal findings on diagnostic imaging of other parts of digestive tract; K44.9 Diaphragmatic hernia without obstruction or gangrene; N28.9 Disorder of kidney and ureter, unspecified
CPT/HCPCS: 71275; 74230; 92611; 93306; Q9967

== ENCOUNTER 2023-11-11 08:30 | Emergency (ER) | payer MEDICARE, SELFPAY ==
[2023-11-11] VITALS (10 sets, daily range): BP systolic 117–174; BP diastolic 73–100; PULSE 98–113; RESP 18–27; O2SAT 91–100; BMI 31.3
--- NOTE | 2023-11-11 08:45 | XR_ITS ---
WS: [id number] XR shoulder LT min 2V* [id number] REASON FOR EXAM: trauma FINDINGS: Anterior medial dislocation of the humeral head in relation to the glenoid. No fracture of the glenoid or humeral head or neck is identified on this examination. No Hill-Sachs d eformity. 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 IMPRESSION: Anterior medial glenohumeral dislocation without definite fracture identified.
--- NOTE | 2023-11-11 08:45 | XR_ITS ---
WS: [id number] [place] [id number] REASON FOR EXAM: trauma FINDINGS: Anterior medial dislocation of the glenohumeral joint as previously noted. The remainder of the humerus demonstrates no fracture or other focal bone abnormality. IMPRESSION: No humeral fracture identified.
--- NOTE | 2023-11-11 09:20 | W.ED.EXTPRO ---
HPI - Extremity Problem General: Chief complaint: Extremity Injury, Upper Stated complaint: Fell Time Seen by Provider: 11/11/23 08:37 Source: patient Mode of arrival: ambulatory History of Present Illness: 78-year-old male slipped and fell on the ice landed on outstretched hands has a severe pain in his left shoulder. He denies striking his head denies any other injuries no loss of consciousness. He is awake and alert no previous injury to the left shoulder Complaint: joint pain Onset (ago): minute(s) Pain Consistency: constant Location: left and right Quality: sharp Radiation: distal Relieving factors: nothing Exacerbating factors: nothing Associated symptoms: Deny arthralgias, chest pain, fever(s), myalgias, rash or short of breath Review of Systems Const: Denies: fever(s) Card: Denies: chest pain Resp: Denies: dyspnea GI: Denies: abdominal pain : Denies: dysuria, urinary frequency or urinary urgency Musc: Denies: neck pain or back pain Skin/Breast: Denies: rash PFSH ED PFSH: Medical History Bipolar disorder, in partial remission, most recent episode manic COPD (chronic obstructive pulmonary disease) with emphysema COPD exacerbation HTN (hypertension) Other stimulant dependence, in remission Social History Smoking and tobacco/nicotine status: current some day tobacco/nicotine user Quit status (tobacco/nicotine): has tried quititng Second hand smoke exposure: Yes Current gender identity: Male Physical Exam Const: GENERAL APPEARANCE: cooperative and comfortable ORIENTATION/CONSCIOUSNESS: Yes awake, Yes oriented to person, Yes oriented to place and Yes oriented to time HENMT: COMMON NORMALS: normocephalic, atraumatic and hearing grossly normal bilaterally HEAD & SCALP: normocephalic and atraumatic Resp: COMMON NORMALS: normal respiratory effort, No retractions, No use of accessory muscles and clear to auscultation bilaterally AUSCULTATION: clear to auscultation bilaterally Cardio: COMMON NORMALS: regular rate, regular rhythm and No murmurs present (Cardio) RATE: regular rate RHYTHM: regular rhythm Extremity: COMMON NORMALS: capillary refill normal, no clubbing, cyanosis or edema, no calf tenderness and no pedal edema OTHER: Obvious deformity of the right shoulder with limited range of motion due to pain. Exam findings at the bedside consistent with shoulder dislocation confirmed on x-ray Neuro: SENSORIUM/ORIENTATION: Yes oriented to person, Yes oriented to place and Yes oriented to time Skin: COMMON NORMALS: no rashes or lesions noted GENERAL SKIN EXAM: no rashes or lesions noted Procedures Orthopedic Joint Reduction Joint #1: Time Out Performed: Yes Side: left Joint Reduction Location: shoulder Analgesia: procedural sedation Shoulder Technique Used (if applicable): traction/counter-traction Post-reduction neuro exam: intact Post-reduction vascular: intact Post Reduction X-Ray Obtained: Yes Post Reduction X-Ray Results: reduced Splint Applied: Yes (Shoulder immobilizer) Patient Tolerated Procedure: well Procedural Sedation Indication: fracture/dislocation reduction ASA Class: I Preparation: monitoring and evaluation advisor applied, pulse oximeter, supplemental O2 applied, suction/airway equipment at bedside and IV secured Fentanyl: IV Fentanyl dose (mcg): 50 (X 2) Midazolam: IV Midazolam dose (mg): 3 Patient Tolerated Procedure: well Complications: none Interventions: oxygen applied Additional Comments: Postreduction film shows good anatomical positioning. Neurovascularly intact Course Vital Signs: Vital signs: Vital Signs Pulse Rate 108 H 11/11/23 10:03 Respiratory Rate 20 H 11/11/23 10:03 Blood Pressure 172/87 11/11/23 10:03 Pulse Oximetry 92 11/11/23 10:03 Oxygen Delivery Me thod Room Air 11/11/23 10:03 Oxygen Flow Rate 3 11/11/23 09:59 MDM - Extremity (Nontraumatic) Medical Decision Making Procedural sedation for joint reduction. Patient tolerated well discharged home in shoulder immobilizer set up outpatient MRI and orthopedic follow-up Medical Records I reviewed the patient's medical records. Lab Data I reviewed the patient's lab results. All radiology interpretation(s) finalized by discharge Discharge Plan Discharge Patient Disposition: Home Clinical Impression: Anterior dislocation of left shoulder Condition: Stable Prescriptions: New hydrocodone-acetaminophen 5-325 mg tablet 1 tab PO Q6H PRN (Reason: pain) Qty: 20 0RF No Action aspirin 81 mg tablet,chewable 81 mg PO DAILY lisinopril 20 mg tablet 20 mg PO DAILY rosuvastatin [Crestor] 40 mg tablet 40 mg PO DAILY aripiprazole [Abilify] 5 mg tablet 5 mg PO DAILY Qty: 30 5RF albuterol sulfate 90 mcg/actuation HFA aerosol inhaler 2 puff inhalation Q6H PRN (Reason: shortness of breath or wheezing) Qty: 8.5 0RF budesonide-formoterol [Symbicort] 160-4.5 mcg/actuation HFA aerosol inhaler 2 puff inhalation BID Qty: 10.2 5RF calcium-magnesium 300-300 mg Tablet 1 tab PO BID Rx Instructions: administer with a meal melatonin 5 mg Tablet 5 mg PO BEDTIME PRN (Reason: sleep) prednisone 20 mg Tablet 40 mg PO DAILY Qty: 6 0RF amlodipine 5 mg Tablet 5 mg PO DAILY Qty: 30 0RF doxycycline monohydrate 100 mg Tablet 100 mg PO BID Qty: 10 0RF Discharge Orders: Discharge ED (Routine); Ordered 11/11/23 Ordered By: Marcus Lomas Referrals: Carlos Angeles MD [Primary Care Provider] - Discharge Diet: Usual diet Discharge Activity: Limit activity as instructed Patient Instructions: Opioid Safety, Pain Management Activity Restrictions/Additional Instructions: Thank you for choosing [facility] for your healthcare needs today. Please realize this is an emergency room and that we are providing you with a medical screening exam and this may not be complete and all inclusive of all the testing and or work up that you may need to determine your ailment or severity of your illness. It is very important that you follow up as instructed or that you return to the Emergency Department should you have concerns or if your condition changes or worsens in any way. You were seen today for a left shoulder dislocation. Recommend you wear shoulder immobilizer until released by orthopedics. Case management make arrangements for an MRI of your shoulder and follow-up with the orthopedic clinic. Coding Level of Care Code ED Security Trainer for Alexandr Apodaca
[2023-11-11] MEDS: fentaNYL 50 mcg/mL INJ 2mL IVP ×2 (09:38→09:48)
[2023-11-11] MEDS: midazolam 1 mg/mL INJ 2 mL 6 MG IVP (09:48)
--- NOTE | 2023-11-11 09:54 | XR_ITS ---
WS: [id number] XR shoulder LT min 2V* [id number] REASON FOR EXAM: Postreduction FINDINGS: Previously demonstrated anterior dislocation reduced with normal glenohumeral alignment. Subtle deformity in the inferior glenoid rim which potentially could represent nondisplaced impaction fracture. No humeral fracture identified. IMPRESSION: Reduction of previous anterior dislocation. Possible bony injury of the glenoid as above.
--- NOTE | 2023-11-11 10:20 | PC.NURSE ---
patient jimena reduction very well
--- NOTE | 2023-11-14 07:25 | DCPLANNER ---
Message was sent to ortho on 11/14/23 at 0725 am. Clinic to contact patient.
== END 2023-11-11 11:30 | disposition home or self-care (01) ==
PROVIDERS: Emergency Provider Family Medicine; PCP Family Medicine
DX: S43.005A Unspecified dislocation of left shoulder joint, initial encounter (principal); Z79.82 Long term (current) use of aspirin; W00.0XXA Fall on same level due to ice and snow, initial encounter; J44.9 Chronic obstructive pulmonary disease, unspecified; I10 Essential (primary) hypertension; Z72.0 Tobacco use
CPT/HCPCS: 23650; 73030; 73060; 94760; 99152; 99285; J2250; J3010